=== PATIENT | female | born 2000 | race Caucasian/White ===

== ENCOUNTER 2021-05-08 22:42 | Emergency (ER) | payer OTHER ==
[~2021-05-08 22:42] MED LIST: IBUPROFEN800 MG PO; NORCO 5-325 TA1 EACH PO
[2021-05-09 00:26] LABS: CORONAVIRUS 2019 SARS-COV-2 NEGATIVE (NEGATIVE); INFLUENZA A NAA NEGATIVE (NEGATIVE)
[2021-05-09 01:30] LABS: BILIRUBIN NEGATIVE (NEGATIVE); BLOOD NEGATIVE Ery/uL (NEGATIVE); CLARITY CLEAR (CLEAR); GLUCOSE (U) NORMAL (NORMAL); LEUKOCYTES TRACE Leu/uL (NEGATIVE); NITRITE NEGATIVE (NEGATIVE); PROTEIN NEGATIVE (NEGATIVE); SPECIFIC GRAVITY <=1.005 (1.001-1.030); UROBILINOGEN 0.2 mg/dL (0.2-1.0)
[2021-05-09 01:37] LABS: COLOR STRAW (YELLOW)
[2021-05-09 01:38] LABS: BACTERIA TRACE
[2021-05-09 01:57] LABS: BUN/CREAT RATIO (CALC) 3.8 RATIO; CREATININE 0.53 mg/dL (0.51-0.95); POTASSIUM 3.8 mmol/L (3.5-5.1)
[2021-05-09 01:58] LABS: BASOPHIL 0.4 % (0-2); EOSINOPHIL 1.4 % (0-5); HCT 38.7 % (37.0-47.0); HGB 12.8 g/dl (12.5-16.0); LYMPHOCYTE 13.1 % (15-48); MCH 29.6 pg (25.0-31.0); MCHC 33.1 g/dL (32.0-36.0); MCV 89.6 fL (78.0-100.0); MONOCYTE 8.3 % (0-12); MPV 10.4 fL (6.0-9.5); NEUTROPHIL 76.4 % (41-80); NRBC 0; PLT 204 K/uL (150-400); RBC 4.32 M/uL (4.20-5.40); RDW 13.2 % (11.5-14.0); WBC 8.4 K/uL (4.0-10.5)
[2021-05-09] MEDS ORDERED: PRENATAL FORMU1 EACH PO (02:58)
[2021-05-09] MEDS ORDERED: PHENERGAN12.5 M1 PO (02:58)
== END 2021-05-09 03:11 | disposition home or self-care (01) ==
LOC: FER 22:42
PROVIDERS: Emergency Medicine Emergency Medical Services
DX: O98.511 Other viral diseases complicating pregnancy, first trimester (principal); B34.9 Viral infection, unspecified; O99.331 Smoking (tobacco) complicating pregnancy, first trimester; F17.290 Nicotine dependence, other tobacco product, uncomplicated; Z3A.00 Weeks of gestation of pregnancy not specified; Z20.822 Contact with and (suspected) exposure to COVID-19
CPT/HCPCS: 36415; 80048; 81001; 84702; 85025; 99283; U0002

== ENCOUNTER 2021-09-04 08:20 | Emergency (ER) | payer OTHER ==
[~2021-09-04 08:20] MED LIST changes: +PHENERGAN12.5 M1 PO; +PRENATAL FORMU1 EACH PO
[2021-09-04 09:13] LABS: BASOPHIL 0.4 % (0-2); EOSINOPHIL 0.5 % (0-5); HCT 35.5 % (37.0-47.0); HGB 11.5 g/dl (12.5-16.0); LYMPHOCYTE 12.2 % (15-48); MCH 29.4 pg (25.0-31.0); MCHC 32.4 g/dL (32.0-36.0); MCV 90.8 fL (78.0-100.0); MONOCYTE 4.2 % (0-12); NEUTROPHIL 82.3 % (41-80); NRBC 0; PLT 251 K/uL (150-400); RBC 3.91 M/uL (4.20-5.40); RDW 13.5 % (11.5-14.0); WBC 7.7 K/uL (4.0-10.5)
[2021-09-04 09:33] LABS: BUN/CREAT RATIO (CALC) 10.9 RATIO; CREATININE 0.46 mg/dL (0.51-0.95); POTASSIUM 3.4 mmol/L (3.5-5.1)
[2021-09-04 09:34] LABS: BILIRUBIN 1+ mg/dL (NEGATIVE); BLOOD NEGATIVE Ery/uL (NEGATIVE); CLARITY CLOUDY (CLEAR); COLOR YELLOW (YELLOW); GLUCOSE (U) NORMAL (NORMAL); LEUKOCYTES NEGATIVE Leu/uL (NEGATIVE); NITRITE NEGATIVE (NEGATIVE); PROTEIN 1+ mg/dL (NEGATIVE); SPECIFIC GRAVITY 1.025 (1.001-1.030)
[2021-09-04 09:59] LABS: BACTERIA 2+; MUCOUS TRACE; SQUAMOUS EPITHELIAL CELLS 20-50; URINARY RBC RARE
== END 2021-09-04 10:35 | disposition home or self-care (01) ==
LOC: FER 08:20
PROVIDERS: Emergency Medicine
DX: O99.891 Other specified diseases and conditions complicating pregnancy (principal); R55 Syncope and collapse; O99.332 Smoking (tobacco) complicating pregnancy, second trimester; F17.290 Nicotine dependence, other tobacco product, uncomplicated; Z3A.20 20 weeks gestation of pregnancy
CPT/HCPCS: 36415; 80048; 81001; 85025; 93005

== ENCOUNTER 2021-10-23 10:46 | Emergency (ER) | payer OTHER ==
[~2021-10-23] VITALS: Ht 162.6 cm; Wt 59.0 kg
[2021-10-23 13:26] LABS: CORONAVIRUS 2019 SARS-COV-2 POSITIVE (NEGATIVE); INFLUENZA A NAA NEGATIVE (NEGATIVE)
== END 2021-10-23 14:30 | disposition home or self-care (01) ==
LOC: FER 10:46
PROVIDERS: Emergency Medicine
DX: O98.512 Other viral diseases complicating pregnancy, second trimester (principal); O99.332 Smoking (tobacco) complicating pregnancy, second trimester; U07.1 COVID-19; F17.290 Nicotine dependence, other tobacco product, uncomplicated; Z3A.27 27 weeks gestation of pregnancy
CPT/HCPCS: 87880; 99283; U0002

== ENCOUNTER 2022-01-13 05:27 | Inpatient (IN) | payer OTHER ==
[~2022-01-13] VITALS: Ht 162.6 cm; Wt 67.6 kg
[2022-01-13 06:25] LABS: HCT 31.6 % (37.0-47.0); HGB 10.5 g/dl (12.5-16.0); MCH 27.9 pg (25.0-31.0); MCHC 33.2 g/dL (32.0-36.0); MPV 11.7 fL (6.0-9.5); RBC 3.76 M/uL (4.20-5.40); RDW 14.5 % (11.5-14.0); WBC 11.9 K/uL (4.0-10.5)
[2022-01-14 06:31] LABS: HCT 24.6 % (37.0-47.0); HGB 7.8 g/dl (12.5-16.0); MCH 27.4 pg (25.0-31.0); MCHC 31.7 g/dL (32.0-36.0); MCV 86.3 fL (78.0-100.0); MPV 11.3 fL (6.0-9.5); RBC 2.85 M/uL (4.20-5.40); RDW 14.7 % (11.5-14.0)
== END 2022-01-15 11:05 | disposition home or self-care (01) | DRG 806 ==
LOC: FOB 05:27 → FMOC 05:27 → FOB 06:07 → FMOC 01-16 08:28
PROVIDERS: ADMIT Obstetrics & Gynecology
PROC: 10E0XZZ Delivery of Products of Conception, External Approach (ICD-10-PCS; principal; 2022-01-13)
DX: O99.02 Anemia complicating childbirth (principal); D62 Acute posthemorrhagic anemia; Z37.0 Single live birth; Z3A.39 39 weeks gestation of pregnancy; D50.9 Iron deficiency anemia, unspecified; Z20.822 Contact with and (suspected) exposure to COVID-19; Z86.16 Personal history of COVID-19
CPT/HCPCS: 36415; 90707; J2916; J7120; U0002